=== PATIENT | male | born 1950 | race Caucasian/White ===

== ENCOUNTER 2017-03-12 12:35 | Inpatient (IN) | payer MEDICARE, MEDICAID ==
[~2017-03-12 12:35] MED LIST: ANTIVERT12.5 MG PO; ARTIFICIAL TEAR15 M2 EYELF; ARTIFICIAL TEAR15 ML EYELF; CLONAZEPAM0.5 MG PO; COUGH DROPS1 EAC1 PO; DEBROX 6.5% EARBOTH; DEBROX15 ML MISC; DEPAKOTE SPRIN125 MG PO; DEPAKOTE500 MG PO; DULCOLAX10 MG RECTAL; DURAGESIC25 MCG TOP; ECOTRIN325 MG PO; FERROUS SULFAT325 M1 PO; FLEET ENEMA133 M1 RECTAL; FLONASE16 GM NASBOTH; GLUCAGON EMERGEN1 MG INJECT; GLUCOPHAGE1000 MG PO; IMODIUM2 MG PO; JANUVIA50 MG PO; KLOR-CON M1010 MEQ PO; KLOR-CON M2020 MEQ PO; LANTUS100 UNIT/1 INJECT; LASIX40 MG PO; LEVOTHYROXINE75 MCG PO; LOPID600 MG PO; MAALOX ADVANCE1 EACH PO; MAALOX ADVANCE355 ML PO; MILK OF MAGNESI30 ML PO; MOBIC15 MG PO; MUCINEX600 MG PO; MULTI-VITAMIN1 EACH PO; NEURONTIN600 MG PO; PRAVACHOL40 M1 PO; PREDNISONE20 MG PO; PRINIVIL10 MG PO; PROMETH-CODEIN 65 ML PO; RISPERDAL0.25 MG PO; RISPERDAL0.5 MG PO; SYNTHROID100 MCG PO; TYLENOL325 MG PO; ULTRAM50 MG PO; VIBRAMYCIN100 MG PO; ZANTAC300 MG PO
[2017-03-12] MEDS ORDERED: DEPAKOTE500 MG PO (16:25)
[2017-03-12] MEDS ORDERED: ATIVAN0.5 MG PO (16:26)
[2017-03-12] MEDS ORDERED: MECLIZINE HCL25 M1 PO (16:27)
[2017-03-12] MEDS ORDERED: CELEXA20 MG PO (16:28)
[2017-03-12] MEDS ORDERED: NAPROSYN500 MG PO (16:29)
[2017-03-12] MEDS ORDERED: ROBITUSSIN COU237 ML PO (16:30)
[2017-03-12] MEDS ORDERED: TYLENOL650 MG RECTAL (16:31)
[2017-03-12] MEDS ORDERED: COMPAZINE5 M1 PO (16:31)
[2017-03-12] MEDS ORDERED: ACETAMINOPHEN650 M2 PO (16:31)
[2017-03-12] MEDS ORDERED: SENNOSIDES8.6 MG PO (16:33)
[2017-03-12] MEDS ORDERED: FLEET ENEMA133 M1 RECTAL (16:34)
[2017-03-12] MEDS ORDERED: DURAGESIC25 MCG TOP (16:34)
[2017-03-12] MEDS ORDERED: GLUCAGEN1 MG/1 ML SUBCUT (16:35)
[2017-03-12] MEDS ORDERED: IMODIUM2 MG PO (16:35)
[2017-03-12] MEDS ORDERED: MILK OF MAGNESI30 ML PO (16:36)
== END 2017-03-13 13:20 | disposition short-term general hospital (02) | DRG 100 ==
LOC: ER 12:35 → IP 16:50
PROVIDERS: ADMIT Family Medicine
DX: G40.409 Other generalized epilepsy and epileptic syndromes, not intractable, without status epilepticus (principal); J69.0 Pneumonitis due to inhalation of food and vomit; K92.0 Hematemesis; F25.9 Schizoaffective disorder, unspecified; I10 Essential (primary) hypertension; E11.9 Type 2 diabetes mellitus without complications
CPT/HCPCS: J1650; J1815; J1956; J2060; J2543

== ENCOUNTER 2017-06-05 04:03 | Emergency (ER) | payer MEDICARE, MEDICAID ==
[~2017-06-05] VITALS: Ht 172.7 cm; Wt 81.6 kg
[~2017-06-05 04:03] MED LIST changes: +ACETAMINOPHEN650 M2 PO; +ATIVAN0.5 MG PO; +CELEXA20 MG PO; +COMPAZINE5 M1 PO; +GLUCAGEN1 MG/1 ML SUBCUT; +MECLIZINE HCL25 M1 PO; +NAPROSYN500 MG PO; +ROBITUSSIN COU237 ML PO; +SENNOSIDES8.6 MG PO; +TYLENOL650 MG RECTAL
[2017-06-05] MEDS ORDERED: KLONOPIN0.5 MG PO (05:28)
[2017-06-05] MEDS ORDERED: COMPAZINE10 MG PO (05:29)
[2017-06-05] MEDS ORDERED: KEPPRA500 M1 PO (05:32)
[2017-06-05] MEDS ORDERED: ANTIVERT12.5 MG PO (05:34)
[2017-06-05] MEDS ORDERED: DEMADEX20 MG PO (05:36)
[2017-06-05] MEDS ORDERED: VITAMIN D1000 UNI1 PO (05:38)
[2017-06-05] MEDS ORDERED: BIOFREEZE89 ML TOP (05:39)
[2017-06-05] MEDS ORDERED: NOVOLOG100 UNIT/2 SUBCUT (05:43)
[2017-06-05] MEDS ORDERED: KLOR-CON M1010 MEQ PO (05:44)
[2017-06-05] MEDS ORDERED: FERROUS SULFAT325 M1 PO (05:45)
[2017-06-05] MEDS ORDERED: FLEET ENEMA133 M1 RECTAL (05:47)
[2017-06-05] MEDS ORDERED: VIMPAT200 MG PO (05:48)
[2017-06-05] MEDS ORDERED: TYLENOL325 MG PO (05:50)
[2017-06-05] MEDS ORDERED: ARTIFICIAL TEA1 EACH EYELF (05:51)
[2017-06-05] MEDS ORDERED: ATIVAN0.5 MG PO (05:52)
== END 2017-06-05 08:50 | disposition short-term general hospital (02) ==
LOC: ER 04:03
PROC: 0T9B70Z Drainage of Bladder with Drainage Device, Via Natural or Artificial Opening (ICD-10-PCS; principal; 2017-06-05)
DX: G40.909 Epilepsy, unspecified, not intractable, without status epilepticus (principal); E11.9 Type 2 diabetes mellitus without complications; F25.9 Schizoaffective disorder, unspecified; E03.9 Hypothyroidism, unspecified; K21.9 Gastro-esophageal reflux disease without esophagitis; E78.5 Hyperlipidemia, unspecified; D64.9 Anemia, unspecified; M19.90 Unspecified osteoarthritis, unspecified site; I11.0 Hypertensive heart disease with heart failure; I50.9 Heart failure, unspecified; Z79.899 Other long term (current) drug therapy; Z79.4 Long term (current) use of insulin
CPT/HCPCS: J2060; Q2009